=== PATIENT | male | born 1955 | race Caucasian/White ===

== ENCOUNTER → 2019-06-10 | Outpatient (CLI) | payer OTHER ==
[~2019-06-10] VITALS: Ht 177.8 cm; Wt 77.1 kg
[~2019-06-10] MED LIST: LIPITOR10 MG PO
--- NOTE | 2019-06-13 14:46 | P ---
[facility] [place] [address] PROCEDURE REPORT Name: ROSSWANDAANALI DORIS Room #: REG [facility] [id number] Admission: 06/10/19 Attend Phys: Olegario Garcia Discharge: Date of : 51 Report #: [id number] THIS REPORT FOR: //name// CC: Olegario Porter DATE OF SERVICE: 06/10/2019 PROCEDURE PERFORMED: Colonoscopy. HISTORY OF PRESENT ILLNESS: The patient is a 63-year-old male who presents today for routine screening colonoscopy. Last colonoscopy was 10 years ago and reportedly negative. He denies any symptoms. No family history of colon cancer. DESCRIPTION OF PROCEDURE: The risks and benefits of the procedure were explained to the patient, those risks including but not limited to bleeding, perforation and the risk of sedation. He understood these risks and gave informed consent. Sedation was given using propofol per anesthesia. Next, a digital rectal exam was initially performed, which was normal. Next, using a standard Olympus colonoscope, the scope was placed in the patient's anus and advanced under direct vision to the cecum. The prep was good overall, there was a small amount of stool noted in the rectum, but this was cleared away. The cecum and ileocecal valve were normal in appearance. Ascending, transverse, descending and sigmoid colon were normal. The rectal mucosa was normal. On retroflexion, small nonbleeding internal hemorrhoids were noted. The scope was then withdrawn and the procedure terminated. The patient tolerated the procedure well. IMPRESSION: 1. Small internal hemorrhoids. 2. Otherwise, normal colonoscopy. RECOMMENDATIONS: Repeat colonoscopy in 10 years. Thank you for allowing me to participate in his care. <ELECTRONICALLY SIGNED> By: Olegario Mo MD 06/13/19 [id number] [id number] Olegario Mo MD /nt
== END | disposition home or self-care (01) ==
LOC: GI 09:00
DX: Z12.11 Encounter for screening for malignant neoplasm of colon (principal); K64.8 Other hemorrhoids; E78.5 Hyperlipidemia, unspecified; Z98.890 Other specified postprocedural states; Z79.899 Other long term (current) drug therapy; Z95.0 Presence of cardiac pacemaker; Z85.828 Personal history of other malignant neoplasm of skin; Z98.41 Cataract extraction status, right eye; Z98.42 Cataract extraction status, left eye
CPT/HCPCS: 62110; 62900

== ENCOUNTER → 2020-12-19 | Outpatient (CLI) | payer OTHER | LOC: SJCVCIMAG 13:15 | PROVIDERS: ATTEND Internal Medicine | DX: I08.1 Rheumatic disorders of both mitral and tricuspid valves (principal); R00.1 Bradycardia, unspecified; Z95.0 Presence of cardiac pacemaker ==

== ENCOUNTER → 2021-03-29 | Outpatient (CLI) | payer OTHER ==
[~2021-03-29] VITALS: Ht 177.8 cm; Wt 74.4 kg
[~2021-03-29] MED LIST changes: +FLOMAX0.4 MG PO
[2021-03-29 11:02] LABS: BASOPHILS 1.2 % (0.0-2.0); EOSINOPHILS 0.5 % (0.0-3.0); HEMATOCRIT 44.9 % (42.0-52.0); HEMOGLOBIN 14.8 gm/dL (14.0-18.0); LYMPHOCYTES 22.7 % (24.0-44.0); MCH 30.6 pg (26.0-34.0); MCV 92.7 fL (80.0-100.0); MONOCYTES 16.1 % (1.0-8.0); PLATELET COUNT 157 thou/uL (150-400); POLYS 59.5 % (36.0-66.0); RBC 4.84 mil/uL (4.50-6.00); RDW 13.4 % (10.5-14.5); WBC 3.4 thou/uL (4.0-11.0)
[2021-03-29 11:05] VITALS: BP 96/59
[2021-03-29 11:16] LABS: APTT 25.4 Seconds (24.5-32.8); INR 0.97; PROTIME 10.6 Seconds (10.5-12.1)
[2021-03-29 11:19] LABS: ALBUMIN 4.1 g/dL (3.4-5.0); CALCIUM 9.1 mg/dL (8.5-10.1); CREATININE 1.2 mg/dL (0.7-1.3); POTASSIUM 4.3 mmol/L (3.5-5.1); TOTAL BILIRUBIN 0.4 mg/dL (0.2-1.0); TOTAL PROTEIN 7.5 g/dL (6.4-8.2)
--- NOTE | 2021-04-01 10:10 | P ---
[facility] [address] PROCEDURE REPORT Name: ANALI ALFRED Room #: REG [facility]LaxmiDanielLaxmi#: [id number] Admission: 03/29/21 Attend Phys: Vince Bee MD Discharge: Date of : 51 Report #: [id number] THIS REPORT FOR: cc: Carlos Porter MD, Rene P. MD Couchonnal, Luis F. MD ~ DATE OF SERVICE: 03/29/2021 PREOPERATIVE DIAGNOSIS: Pacemaker KYLE. POSTOPERATIVE DIAGNOSIS: Pacemaker KYLE. PROCEDURE PERFORMED: Pacemaker generator exchange. HISTORY: The patient is a 65-year-old with history of intermittent heart block and syncope, status post pacemaker implantation in the '90s. He eventually required an atrial lead revision. His device recently reached the replacement interval. He is here for pacemaker generator exchange. ANESTHESIA: The patient underwent MAC anesthesia with no anesthesia-related complications. DESCRIPTION OF PROCEDURE: The patient underwent informed consent. We discussed the details of the procedure including the risks, which include but not limited to bleeding, infection, need for possible lead revisions. He understood these risks and is willing to proceed. The patient was brought to the EP laboratory in a fasting and sedated state, prepped and draped in a standard fashion. I injected lidocaine at the prior incision site. Incision was made and the pocket was entered. He did have extensive calcification of the pocket, which I removed. I did expand his pocket, making it somewhat lower and more medial as the prior device was protruding to the shoulder and cosmetic lead was not to his satisfaction. I then disconnected the leads from the device. These were tested and found to be functioning normally. A new device was connected, tug tests were performed and the device was placed in the pocket. The pocket was then irrigated with vancomycin and then the pocket was closed in 2 layers using 2-0 for the deep layer, 3-0 for the middle layer and surgical glue was placed to outer skin layer. The patient awoke neurologically and hemodynamically intact. No complications and no significant bleeding. I did send him home with a prescription for minocycline for 7 days. The explanted pacemaker was a Medtronic, model number ADDRL1, serial number [id number], implanted back on 11/24/2008. The newly implanted device was a Medtronic, model number W3DR01, serial number [id number]. The atrial lead was a model number 5076, 52 cm, serial number [id number] and the RV lead was a model number 5034, serial number [id number]. The atrial lead demonstrated P waves of 2.1 millivolts, pacing impedance of 399 ohms, pacing threshold 0.75 volts at 0.[address] [address] PROCEDURE REPORT Name: ANALI ALFRED Room #: REG CL Gunnar#: [id number] Admission: 03/29/21 Attend Phys: Vince Bee MD Discharge: Date of : 51 Report #: [id number] milliseconds. The RV lead demonstrated R-waves of 14 millivolts, pacing impedance 684 ohms and a pacing threshold of 1.25 volts at 0.4 milliseconds. The device was programmed to the DDDR 60-130 mode. CONCLUSIONS: 1. Successful dual-chamber pacemaker generator exchange. 2. Satisfactory atrial and right ventricular pacing and sensing thresholds. <ELECTRONICALLY SIGNED> By: Vince Bee MD 04/01/21 1010 [id number] [id number] Vince Bee MD /nt
== END | disposition home or self-care (01) ==
LOC: CATH 08:39
PROVIDERS: ATTEND Internal Medicine Cardiovascular Disease
DX: Z45.010 Encounter for checking and testing of cardiac pacemaker pulse generator [battery] (principal); I44.2 Atrioventricular block, complete; R55 Syncope and collapse; E78.5 Hyperlipidemia, unspecified; Z98.890 Other specified postprocedural states; Z79.899 Other long term (current) drug therapy; Z85.828 Personal history of other malignant neoplasm of skin; Z98.41 Cataract extraction status, right eye; Z98.42 Cataract extraction status, left eye; Z20.822 Contact with and (suspected) exposure to COVID-19
CPT/HCPCS: 62110; 62900; 70005